=== PATIENT | female | born 1995 | race Caucasian/White ===

== ENCOUNTER 2017-05-08 06:20 | Emergency (ER) | payer OTHER ==
[~2017-05-08 06:20] MED LIST: LORAZEPAM 2 MG/ML 1 ML VIAL ONE
[2017-05-08] MEDS ORDERED: ETOMIDATE 2 MG/ML 20 ML VIAL IV ONE (06:22)
[2017-05-08] MEDS ORDERED: LORAZEPAM 2 MG/ML 1 ML VIAL IV ONE (06:22)
[2017-05-08] MEDS ORDERED: SUCCINYLCHOLINE CHLORIDE 20 MG/ML 10 ML VIAL IV ONE (06:22)
[2017-05-08] MEDS ORDERED: SODIUM CHLORIDE 0.9% 1000ML 1,000 ML IV STA (06:27)
--- NOTE | 2017-05-08 06:30 | EMERGENCY ROOM VISIT NOTE ---
History Report prepared by Bubba: Matias Hoover Under the Supervision of: Dr. Cat Lawrence D.O. First contact with patient: 06:23 Chief Complaint: FALL Stated Complaint: FALL/HEAD INJURY History of Present Illness The patient is a 21 year old female who presents to the Emergency Room with complaints of a constant head injury following a fall occurring today. Per EMS, the patient fell off the toilet this morning and hit her head on the wall. He notes that the patient was found moving back and forth with lip smacking seizure like activity. He reports that the patient's oxygen saturation was 94%- 99% upon transport. He states that the patient's left pupil is larger than her right one. He notes that the patient has a history of a DVT and is on control. Per mom, the patient stopped taking blood thinners a year ago. She reports that the patient does not have a family history of seizures. Per friends , the patient has had a headache and been feeling dizzy for the last week. HPI limited secondary to the patient's clinical condition. Source of History: parent, friend, EMS History Limited By: other (patient's clinical condition) Onset: this morning Position: head Timing: constant Associated Symptoms: + headache Note: Per EMS, the patient was moving back and forth and had lip smacking seizure like activity. He states that the patient's left pupil is bigger than her right one. Per friend, the patient has been dizzy for the last week. Review of Systems ROS limited secondary to the patient's clinical condition. Past Medical & Surgical Medical Problems: (1) DVT (deep venous thrombosis) Family History No pertinent family history stated. Social History Marital Status: single Housing Status: lives with roommate Occupation Status: [employer] student Current/Historical Medications Unable to Obtain Active Prescriptions or Reported Meds Allergies Coded Allergies: No Known Allergies (Unverified , 05/08/17) Physical Exam Vital Signs Date Time Temp Pulse Resp B/P (MAP) Pulse Ox O2 Delivery O2 Flow Rate FiO2 05/08/17 08:30 113 14 101/55 100 Mechanical Ventilator 05/08/17 08:20 119 104/54 99 Mechanical Ventilator 05/08/17 08:12 96/84 05/08/17 08:09 130 81/47 98 Mechanical Ventilator 05/08/17 08:06 130 91/56 96 05/08/17 07:40 136 29 96 05/08/17 07:38 92/67 91/34 05/08/17 07:35 149 21 111/93 97 05/08/17 07:31 97/67 05/08/17 07:30 139 18 96 05/08/17 07:29 81/32 05/08/17 07:27 107/86 05/08/17 07:25 142 13 96 05/08/17 07:24 50 05/08/17 07:21 161/125 05/08/17 07:20 150 22 161/125 100 05/08/17 07:15 134 25 91 05/08/17 07:10 133 25 99 05/08/17 07:05 138 22 100 05/08/17 07:01 94/83 05/08/17 07:00 94 18 100 05/08/17 06:55 91 18 125/82 05/08/17 06:53 150/109 05/08/17 06:52 86/57 05/08/17 06:50 119 28 98 05/08/17 06:45 120 32 99 05/08/17 06:44 101/61 05/08/17 06:40 102 27 97 05/08/17 06:38 37.7 104 14 103/69 97 Nasal Cannula 5.0 05/08/17 06:36 104 05/08/17 06:35 104 05/08/17 06:23 103/69 Physical Exam GENERAL: alert, well appearing, well nourished, no distress, non-toxic HEAD: normal cephalic, small superficial laceration to left forehead, no active bleeding, no other evidence of head trauma. EYE EXAM: normal conjunctiva, EOM's grossly intact, pupils reactive however left pupil greater than right OROPHARYNX: no exudate, no erythema, lips, buccal mucosa, and tongue normal and mucous membranes are moist EARS: TMs clear b/l NECK: supple, no nuchal rigidity, no adenopathy, non-tender, patient in C collar CHEST: stable to compression anteriorly and posteriorly LUNGS: clear to auscultation. Normal chest wall mechanics HEART: no murmurs, S1 normal and S2 normal ABDOMEN: abdomen soft, non-tender, normo-active bowel sounds, no masses, no rebound or guarding. PELVIS: stable to compression anteriorly and posteriorly BACK: Back is symmetrical on inspection and there is no deformity, no midline tenderness, no CVA tenderness. UPPER EXTREMITIES: full active and passive range of motion of all joints without tenderness to palpation, no deformity, no obvious trauma LOWER EXTREMITIES: full active and passive range of motion of all joints without tenderness to palpation, no deformity, no obvious trauma NEURO EXAM: Cranial nerves II-XII grossly intact, normal speech, no gross weakness of arms, no gross weakness of legs. GCS: 15, eyes open, no response to painful stimuli, twitching noted to face and upper extremity with intermittent decorticate posturing in upper extremity. Medical Decision & Procedures ER Provider Diagnostic Interpretation: Radiology results have been interpreted by the radiologist and reviewed by me. HEAD WITHOUT CONTRAST (CT) Findings: The paranasal sinuses and mastoid air cells are clear. The calvarium and skull base are intact. The ventricles and sulci are within normal limits. There is no mass, hematoma, midline shift, or acute infarct. Impression: No acute intracranial abnormality. The above report was generated using voice recognition software. It may contain grammatical, syntax or spelling errors. Electronically signed by: Yaakov Estevez M.D. 05/08/2017 6:44 AM CHEST ONE VIEW PORTABLE FINDINGS: Endotracheal tube positioned 1 cm above the delmer. Lungs are considered clear. Diaphragms are smooth. Costophrenic angles are sharp. IMPRESSION: Endotracheal tube 1 cm above the delmer. Lungs are clear. The above report was generated using voice recognition software. It may contain grammatical, syntax or spelling errors. Electronically signed by: Yaakov Estevez M.D. 05/08/2017 7:16 AM CERVICAL SPINE W/O FINDINGS: No fractures. No subluxation. Prevertebral soft tissues and the C1-C2 interval are intact. No pneumothorax. There are findings of motion artifact at the base of C2, C5, as well as C6. Transaxial acquisition data, however indicates that this is most likely artifact. A well-defined transaxial cortical defect is not appreciated. IMPRESSION: No fractures within the cervical spine. Compromised exam due to patient motion. If The patient remains symptomatic, a rescan would be indicated. The above report was generated using voice recognition software. It may contain grammatical, syntax or spelling errors. Electronically signed by: Yaakov Estevez M.D. 05/08/2017 6:49 AM Laboratory Results 3/19/18 06:40 Red Blood Count 4.43, Mean Corpuscular Volume 91.0, Mean Corpuscular Hemoglobin 29.3, Mean Corpuscular Hemoglobin Concent 32.3, Mean Platelet Volume 11.3, Neutrophils (%) (Auto) 65.9, Lymphocytes (%) (Auto) 20.7, Monocytes (%) (Auto) 7.0, Eosinophils (%) (Auto) 5.9, Basophils (%) (Auto) 0.4, Neutrophils # (Auto) 4.78, Lymphocytes # (Auto) 1.50, Monocytes # (Auto) 0.51, Eosinophils # (Auto) 0.43, Basophils # (Auto) 0.03 05/08/17 06:40 Test 05/08/17 06:35 05/08/17 06:40 05/08/17 07:16 05/08/17 07:18 Human Chorionic Gonadotropin, Qual NEG (NEG) White Blood Count 7.26 K/uL (4.8-10.8) Red Blood Count 4.43 M/uL (4.2-5.4) Hemoglobin 13.0 g/dL (12.0-16.0) Hematocrit 40.3 % (37-47) Mean Corpuscular Volume 91.0 fL (80-100) Mean Corpuscular Hemoglobin 29.3 pg (25-34) Mean Corpuscular Hemoglobin Concent 32.3 g/dl (32-36) Platelet Count 120 K/uL (130-400) Mean Platelet Volume 11.3 fL (7.4-10.4) Neutrophils (%) (Auto) 65.9 % Lymphocytes (%) (Auto) 20.7 % Monocytes (%) (Auto) 7.0 % Eosinophils (%) (Auto) 5.9 % Basophils (%) (Auto) 0.4 % Neutrophils # (Auto) 4.78 K/uL (1.4-6.5) Lymphocytes # (Auto) 1.50 K/uL (1.2-3.4) Monocytes # (Auto) 0.51 K/uL (0.11-0.59) Eosinophils # (Auto) 0.43 K/uL (0-0.5) Basophils # (Auto) 0.03 K/uL (0-0.2) RDW Standard Deviation 41.6 fL (36.4-46.3) RDW Coefficient of Variation 12.5 % (11.5-14.5) Immature Granulocyte % (Auto) 0.1 % Immature Granulocyte # (Auto) 0.01 K/uL (0.00-0.02) Prothrombin Time 11.1 SECONDS (9.0-12.0) Prothromb Time International Ratio 1.1 (0.9-1.1) Anion Gap 8.0 mmol/L (3-11) Estimated GFR () 101.8 Estimated GFR (Non- 87.9 BUN/Creatinine Ratio 15.5 (10-20) Calcium Level 8.1 mg/dl (8.5-10.1) Magnesium Level 2.0 mg/dl (1.8-2.4) Total Bilirubin 0.5 mg/dl (0.2-1) Aspartate Amino Transf (AST/SGOT) 17 U/L (15-37) Alanine Aminotransferase (ALT/SGPT) 18 U/L (12-78) Alkaline Phosphatase 51 U/L (45-117) Troponin I < 0.015 ng/ml (0-0.045) Total Protein 6.4 gm/dl (6.4-8.2) Albumin 3.5 gm/dl (3.4-5.0) Globulin 2.9 gm/dl (2.5-4.0) Albumin/Globulin Ratio 1.2 (0.9-2) Thyroid Stimulating Hormone (TSH) 2.230 uIu/ml (0.300-4.500) Ethyl Alcohol mg/dL < 3.0 mg/dl (0-3) Bedside Blood Gas pH (LAB) 7.33 (7.35-7.45) Bedside Blood Gas pCO2 (LAB) 48 mmHg (35-46) Bedside Blood Gas pO2 (LAB) 139 mmHg (80-95) Bedside Blood Gas HCO3 (LAB) 25 meq/L (19-24) Bedside Blood Gas Total CO2 26 mEq/l (24-31) Bedside Blood Gas Base Excess (LAB) -1.0 meq/L (-9-1.8) Bedside Blood Gas O2 Saturation 99.0 % (90-95) Test 05/08/17 07:23 Urine Color YELLOW Urine Appearance CLOUDY (CLEAR) Urine pH 5.0 (4.5-7.5) Urine Specific [place] 1.026 (1.000-1.030) Urine Protein NEG (NEG) Urine Glucose (UA) NEG (NEG) Urine Ketones NEG (NEG) Urine Occult Blood 3+ (NEG) Urine Nitrite NEG (NEG) Urine Bilirubin NEG (NEG) Urine Urobilinogen NEG (NEG) Urine Leukocyte Esterase TRACE (NEG) Urine WBC (Auto) 1-5 /hpf (0-5) Urine RBC (Auto) 5-10 /hpf (0-4) Urine Hyaline Casts (Auto) 5-10 /lpf (0-5) Urine Epithelial Cells (Auto) >30 /lpf (0-5) Urine Bacteria (Auto) NEG (NEG) Urine Opiates Screen NEG (NEG) Urine Methadone, Qualitative NEG (NEG) Urine Barbiturates NEG (NEG) Urine Phencyclidine (PCP) Level NEG (NEG) Ur Amphetamine/Methamphetamine NEG (NEG) MDMA (Ecstasy) Screen NEG (NEG) Urine Benzodiazepines Screen POS (NEG) Urine Cocaine Metabolite NEG (NEG) Urine Marijuana (THC) NEG (NEG) Laboratory results per my review. Medications Administered Medications (Trade) Dose Ordered Sig/Valeri Route Start Time Stop Time Status Last Admin Dose Admin Lorazepam (Ativan Inj) 2 mg STK-MED ONCE .ROUTE 05/08/17 06:19 05/08/17 06:20 DC 05/08/17 06:19 2 MG Sodium Chloride 1,000 ml @ 250 mls/hr Q4H STAT IV 05/08/17 06:27 05/08/17 09:28 DC 05/08/17 08:01 250 MLS/HR Miscellaneous (Rapid Sequence Induction Bag) 1 ea STK-MED ONCE N/A 05/08/17 06:43 05/08/17 06:44 DC 05/08/17 06:43 1 EA Phenytoin Sodium 1400 mg/Sodium Chloride 128 ml @ 270 mls/hr TODAY@0700 IV 05/08/17 07:00 05/08/17 07:29 DC 05/08/17 07:00 270 MLS/HR Diphtheria/ Pertussis/Tetanus Vacc (Adacel Inj) 0.5 ml ONCE ONCE IM. 05/08/17 07:00 05/08/17 07:01 DC 05/08/17 08:02 0.5 ML Propofol (Diprivan Iv Emulsion 100ml Vial) 1 dose UD PRN IV 3/19/18 07:15 05/08/17 09:28 DC 05/08/17 07:53 1 DOSE Lorazepam (Ativan Inj) 2 mg NOW STAT IV 05/08/17 07:25 05/08/17 07:26 DC 05/08/17 07:25 2 MG Fentanyl Citrate (Fentanyl Inj) 70 mcg NOW STAT IV 05/08/17 08:04 05/08/17 08:06 DC 05/08/17 08:16 70 MCG Procedure Endotracheal Intubation Indication Airway protection. The patient was on 100% oxygen via NRB prior to the procedure. Suction, airway equipment, RSI drugs, respiratory equipment, and appropriate personnel were prepared prior to the initiation of the procedure. A time out was taken. Induction was performed with etomidate and succinylcholine. After observing the clinical benefit of the medications, the airway was easily visualized utilizing a video laryngoscopy. A 7.5 size ETT tube was placed atraumatically to 21 cm using standard technique. The cuff inflated without signs of malfunction. There were bilateral breath sounds, positive colormetric change, no gastric sounds, a good capnography waveform, and post procedure pulse oximetry was 100%. Post intubation sedation and paralysis was administered using propofol. There were no complications. ECG Per My Interpretation Indication: other (seizure-like activity) Rate (beats per minute): 106 Findings: no acute ischemic change, no ectopy, other (Normal axis, normal intervals) ED Course 0620: The patient was evaluated in room B1. A complete history and physical exam was performed. Per EMS, the patient was found moving back and forth with lip smacking seizure like activity. He notes that the patient's O2 saturation has been 94%-99%. He reports that the patient's left pupil is bigger than her right one. He states that the patient was given 2.5mg diazepam [employer]OUNT LEADER. He states that the patient has a history of a DVT and is currently on control. 0621: The patient's pupils are reactive. 0622: An IV line was placed. 0623: 0.5mg Lorazepam was given. 0625: The patient was sent to CT. 0638: Per nursing staff, the patient's mother notes that the patient has not had to take blood thinners for the last year. 0640: An EKG was taken. 0640: 1mg Lorazepam was given. 0641: The patient's feet are beginning to shake. Per EMS, the patient's feet were not moving earlier. 0651: 20mg Etomidate and 100mg Succinylcholine were given. 0657: The patient was intubated. 0658: I spoke to pharmacy about the patient's Phenytoin dosage. They recommended 20/kg. 0700: Diphtheria/Pertussis/Tetanus Vacc 0.5ml IM, Phenytoin Sodium 1400mg/ Sodium Chloride 128 ml @ 270 mls/hr IV 0706: A new chest x-ray was taken. 0709. I attempted to call the patients mother. She did not answer and I left a voicemail. 0713: I spoke to the patients mother, Kerry Nagy. Her phone number is [phone]. She states that she would prefer that the patient be transferred to [facility]. [facility] patient had previously been taking control pills which led to a DVT and patient was anticoagulated for approximately 1 year. Patient has since been off of blood thinners for now greater than a year, is not using any control at this time. There is no other family history of blood clots. There is no family history of seizures or epilepsy. Patient with no prior history of significant head injury or concussion. [facility] patient had complained to mom of a mild cold this week, however was still going to class. 0725: Lorazepam 2mg IV, patient now with more seizure-like activity. 0751: Discussed the patient's case with Dr. Smith at [facility]. He accepts the patient for transfer to the [facility] ICU by helicopter. He will evaluate the patient for further management. I also spoke to Dr. Rhoades - Neurologist. 0804: Fentanyl Citrate 70 mcg IV, patient now appears agitated, does not appear like seizure activity she had had previously. 0805: I updated the patient's mother. She will drive directly to [facility]. 0845: Patient improved following administration of fentanyl. Blood pressure improved with IV fluids. 0935: Flight crew at bedside now packaging patient for transport. I gave report to flight nurse. Medical Decision Differential diagnosis: Etiologies such as fracture, dislocation, intra-abdominal, pneumothorax, intrathoracic , intracranial, neurologic, cva, epilepsy, ICH, concussion, meningitis/encephalitis, dysrhythmia, as well as other traumatic pathologies were entertained. Initial concern based on information from EMS for possible ICH. Pt with stable VS here on arrival, spontaneous respirations, given ativan and sent straight to CT. No prior seizure hx that roommates were aware of, no hx of drug use. Upon return, pt intubated for airway protection as she had not shown any improvement in mentation and was starting to seize again, this time also with what appeared to be posturing. No significant trauma noted on exam. Small subcentimeter lac noted on left forehead likely from hitting bathroom wall or floor. Likely seizure happened first leading to fall/head injury. Pt no longer on blood thinners and no evidence of ICH/trauma to suggest the seizure in secondary to CHI. After additional ativan and persistent seizure like activity, pt given 20 mg/kg of phenytoin. Propofol used for post intubation sedation. As propofol was titrated up to help with sedation, pt BP began to drop, IVF were started. While this did help, pt then had further breakthru seizures. Upon discussion with [facility] for transfer, there neurologist did not advise any additional antiepileptics. They agreed with my preference of air transport of the patient. I discussed the pt's condition with mom, who also preferred pt be transferred to [facility], and then updated her after my discussion with them and their acceptance. While awaiting aviation, labs were returning and were reassuring. I felt pt would be better cared for at a tertiary care facility with continuous EEG capabilities. No clear etiology of seizures found in initial evaluation here. I did not highly suspect infectious etiology, no empiric antibiotics given and pt not stable for LP. I have a low suspicion for any additional occult traumatic injury. Chest x-ray did not reveal any additional pathology, and ET tube in good position. No dysrhythmias noted on telemetry. I discussed with mom pt may require additional imaging such as MRI/ MRV and possibly LP to rule out additional causes of seizures. Tetanus shot updated. Primary closure of subcentimeter lac to left forehead not performed due to continued movement and seizure like activity. Head Trauma GCS Score: 15 Medication Reconcilliation Current Medication List: was personally reviewed by me Blood Pressure Screening Patient's blood pressure: Normal blood pressure Blood pressure disposition: Did not require urgent referral Consults Time Called: 0751 Consulting Physician: Dr. Luis Carter [facility] Returned Call: [phone] Discussed the patient's case with Nikki. They accepts the patient for transfer to the [facility] ICU by helicopter. Will be admitted to Dr. Smith in the ICU. He will evaluate the patient for further management. Additional Consults: Time Called: 0751 Consulted Physician: Dr. Rhoades - Neurologist, [facility] Returned Call: [phone] Additional Comments: Discussed the patient's case. Impression Primary Impression: Status epilepticus Additional Impressions: Closed head injury Superficial laceration of face Fall Critical Care I have personally spent greater than 75 minutes of critical care time in the direct management of this patient. This includes bedside care, interpretation of diagnostic studies, and testing, discussion with consultants, patient, and family members, and other required patient management activities. This 75 minutes is in excess of all separately billable procedures. Scribe Attestation The scribe's documentation has been prepared under my direction and personally reviewed by me in its entirety. I confirm that the note above accurately reflects all work, treatment, procedures, and medical decision making performed by me. Departure Information Dispostion Transfer Acute Care Facility Prescriptions Unable to Obtain Active Prescriptions or Reported Meds Patient Instructions My [facility] [address] Problem Qualifiers Additional Impressions: Closed head injury Encounter type: initial encounter Qualified Codes: S09.90XA - Unspecified injury of head, initial encounter Fall Encounter type: initial encounter Qualified Codes: W19.XXXA - Unspecified fall, initial encounter
[2017-05-08 06:38] VITALS: TEMP 37.7
[2017-05-08] MEDS ORDERED: RAPID SEQUENCE INDUCTION BAG ONE (06:43)
--- NOTE | 2017-05-08 06:45 | DIAGNOSTIC IMAGING REPORT ---
HEAD WITHOUT CONTRAST (CT) CT DOSE: 1504.68 mGy.cm HISTORY: Trauma. Seizure. seizure, head injury TECHNIQUE: Multiaxial CT images of the head were performed without the use of intravenous contrast. A dose lowering technique was utilized adhering to the principles of ALARA. Comparison: None. Findings: The paranasal sinuses and mastoid air cells are clear. The calvarium and skull base are intact. The ventricles and sulci are within normal limits. There is no mass, hematoma, midline shift, or acute infarct. Impression: No acute intracranial abnormality. The above report was generated using voice recognition software. It may contain grammatical, syntax or spelling errors. Electronically signed by: Yaakov Estevez M.D. 05/08/2017 6:44 AM Dictated Date/Time: 05/08/2017 6:42 AM
--- NOTE | 2017-05-08 06:50 | DIAGNOSTIC IMAGING REPORT ---
CERVICAL SPINE W/O CT DOSE: HISTORY: Trauma fall, seizure TECHNIQUE: Multiaxial CT images of the cervical spine were performed and reformatted in the sagittal and coronal plane without the use of contrast. A dose lowering technique was utilized adhering to the principles of ALARA. COMPARISON: None. FINDINGS: No fractures. No subluxation. Prevertebral soft tissues and the C1-C2 interval are intact. No pneumothorax. There are findings of motion artifact at the base of C2, C5, as well as C6. Transaxial acquisition data, however indicates that this is most likely artifact. A well-defined transaxial cortical defect is not appreciated. IMPRESSION: No fractures within the cervical spine. Compromised exam due to patient motion. If The patient remains symptomatic, a rescan would be indicated. The above report was generated using voice recognition software. It may contain grammatical, syntax or spelling errors. Electronically signed by: Yaakov Estevez M.D. 05/08/2017 6:49 AM Dictated Date/Time: 05/08/2017 6:44 AM
[2017-05-08] MEDS ORDERED: PHENYTOIN INFUSION IV SCH (07:00)
[2017-05-08] MEDS ORDERED: SODIUM CHLORIDE 0.9% IV SCH (07:00)
[2017-05-08] MEDS ORDERED: DIPHTHERIA/TETANUS/PERTUSSIS 0.5 ML SYR/VIAL IM. ONE (07:00)
[2017-05-08] MEDS ORDERED: PROPOFOL IV EMULSION 10 MG/ML 100 ML VIAL IV ONE (07:05)
[2017-05-08 07:06] LABS: INR 1.1 (0.9-1.1)
[2017-05-08] MEDS ORDERED: PROPOFOL IV EMULSION 10 MG/ML 100 ML VIAL IV PRN (07:15)
--- NOTE | 2017-05-08 07:17 | DIAGNOSTIC IMAGING REPORT ---
CHEST ONE VIEW PORTABLE CLINICAL HISTORY: seizure mental status change COMPARISON STUDY: No previous studies for comparison. FINDINGS: Endotracheal tube positioned 1 cm above the delmer. Lungs are considered clear. Diaphragms are smooth. Costophrenic angles are sharp. IMPRESSION: Endotracheal tube 1 cm above the delmer. Lungs are clear. The above report was generated using voice recognition software. It may contain grammatical, syntax or spelling errors. Electronically signed by: Yaakov Estevez M.D. 05/08/2017 7:16 AM Dictated Date/Time: 05/08/2017 7:15 AM
[2017-05-08 07:22] LABS: ALBUMIN 3.5 gm/dl (3.4-5.0); ALT/SGPT 18 U/L (12-78); AST/SGOT 17 U/L (15-37); BLOOD UREA NITROGEN 14 mg/dl (7-18); CALCIUM 8.1 mg/dl (8.5-10.1); CARBON DIOXIDE 25 mmol/L (21-32); CREATININE 0.93 mg/dl (0.60-1.20); GLUCOSE 139 mg/dl (70-99); SODIUM 140 mmol/L (136-145)
[2017-05-08] MEDS ORDERED: LORAZEPAM 2 MG/ML 1 ML VIAL IV STA (07:25)
[2017-05-08 07:26] LABS: BASO % 0.4 %; BASO ABS # 0.03 K/uL (0-0.2); EOS % 5.9 %; EOS ABS # 0.43 K/uL (0-0.5); HEMATOCRIT 40.3 % (37-47); IG# 0.01 K/uL (0.00-0.02); LYMPH % 20.7 %; MEAN CORPUSCULAR HEMOGLOBIN 29.3 pg (25-34); MEAN CORPUSCULAR HGB CONC 32.3 g/dl (32-36); MEAN PLATELET VOLUME 11.3 fL (7.4-10.4); MONO ABS # 0.51 K/uL (0.11-0.59); NEUT % 65.9 %; NEUT ABS # 4.78 K/uL (1.4-6.5); PLATELET COUNT 120 K/uL (130-400); RED CELL DISTRIBUTION WIDTH CV 12.5 % (11.5-14.5); RED CELL DISTRIBUTION WIDTH SD 41.6 fL (36.4-46.3); WHITE BLOOD COUNT 7.26 K/uL (4.8-10.8)
[2017-05-08 07:33] LABS: ALKALINE PHOSPHATASE 51 U/L (45-117); TOTAL PROTEIN 6.4 gm/dl (6.4-8.2)
[2017-05-08] MEDS ORDERED: FENTANYL CITRATE INJ 50 MCG/1 ML 2 ML VIAL IV STA (08:04)
[2017-05-08 08:30] VITALS: BP 101/55; PULSE 113; O2SAT 100
== END 2017-05-08 08:43 | disposition short-term general hospital (02) ==
LOC: EDBD 06:20 → C.EDB 06:21
DX: G40.901 Epilepsy, unspecified, not intractable, with status epilepticus (principal); S09.90XA Unspecified injury of head, initial encounter; S01.81XA Laceration without foreign body of other part of head, initial encounter; W18.12XA Fall from or off toilet with subsequent striking against object, initial encounter; Z23 Encounter for immunization; Z79.3 Long term (current) use of hormonal contraceptives; Z86.718 Personal history of other venous thrombosis and embolism